=== PATIENT | male | born 1960 | race Caucasian/White ===

== ENCOUNTER 2020-04-13 07:24 | Day surgery (SDC) | payer BC ==
[2020-04-10 14:35] VITALS: BMI 25.0
[2020-04-13] MEDS ORDERED: LIDOCAINE HCL/PF 2% SDV 5ML VIAL ONE (07:53)
[2020-04-13] MEDS ORDERED: PROPOFOL 20 ML ONE ×2 (07:53)
[2020-04-13 08:56] VITALS: TEMP 98.2
[2020-04-13 09:25] VITALS: BP 111/47; PULSE 69
== END 2020-04-13 09:15 | disposition home or self-care (01) ==
LOC: FASU-ENDO 07:24
PROVIDERS: ATTEND Internal Medicine Gastroenterology
PROC: 0DBN8ZX Excision of Sigmoid Colon, Via Natural or Artificial Opening Endoscopic, Diagnostic (ICD-10-PCS; 2020-04-13)
PROC: 0DBK8ZX Excision of Ascending Colon, Via Natural or Artificial Opening Endoscopic, Diagnostic (ICD-10-PCS; principal; 2020-04-13 08:27)
DX: Z12.11 Encounter for screening for malignant neoplasm of colon (principal); D12.2 Benign neoplasm of ascending colon; D12.5 Benign neoplasm of sigmoid colon
CPT/HCPCS: 88305-TC

== ENCOUNTER 2020-09-28 11:23 | Emergency (ER) | payer BC ==
[2020-09-28 11:32] VITALS: TEMP 98; BMI 24.3
[2020-09-28] MEDS ORDERED: LORazepam 2 MG TABLET PO ONE (12:05)
[2020-09-28] MEDS ORDERED: LORazepam 0.5 MG TABLET ONE (12:18)
[2020-09-28 12:28] VITALS: BP 152/92; PULSE 87
== END 2020-09-28 13:27 | disposition home or self-care (01) ==
LOC: FER 11:23
DX: R42 Dizziness and giddiness (principal)
CPT/HCPCS: 70450-TC; 82962; 99284-25